=== PATIENT | male | born 1995 | race Caucasian/White ===

== ENCOUNTER 2018-12-03 14:42 | Emergency (ER) | payer SELFPAY ==
[~2018-12-03] VITALS: Ht 182.9 cm; Wt 56.7 kg
[~2018-12-03 14:42] MED LIST: BACLOFEN10 MG PO
== END 2018-12-03 15:00 | disposition home or self-care (01) ==
LOC: ED 14:42
DX: K08.89 Other specified disorders of teeth and supporting structures (principal)

== ENCOUNTER 2021-04-15 17:19 | Emergency (ER) | payer OTHER ==
[~2021-04-15] VITALS: Ht 182.9 cm; Wt 52.2 kg
== END 2021-04-15 20:47 | disposition home or self-care (01) ==
LOC: ED 17:19
DX: S61.212A Laceration without foreign body of right middle finger without damage to nail, initial encounter (principal); F17.200 Nicotine dependence, unspecified, uncomplicated; Z23 Encounter for immunization; W26.8XXA Contact with other sharp object(s), not elsewhere classified, initial encounter
CPT/HCPCS: 12001; 90471; 90715; 99282-25